=== PATIENT | female | born 1940 | race Two or more races ===

== ENCOUNTER 2018-08-21 17:56 | Emergency (ER) | payer MEDICARE, MEDICAID ==
[~2018-08-21] VITALS: Ht 157.5 cm; Wt 81.6 kg
[2018-08-21] MEDS ORDERED: UNOBMED (18:06)
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
[2018-08-21] MEDS ORDERED: Morphine Sulfate 2mg/ml Inj(IV/IM USE ONLY) IVP ONE ×3 (18:15→23:00)
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
--- NOTE | 2018-08-21 18:30 | NUR ---
ED Nurse Note: pt has dialysis AV shunt on right forearm and old AV shunt on left forearm.
--- NOTE | 2018-08-21 18:33 | NUR ---
ED Nurse Note: blood specimens sent down to the lab. All meds given.
--- NOTE | 2018-08-21 18:39 | NUR ---
ED Nurse Note: pt went down for CT and Xray via gurney. No s/s of distress.
[2018-08-21 19:05] LABS: BASOPHILS % (AUTO) 1.4 % (0.0-2.0); HEMATOCRIT 38.1 % (37.0-47.0); HEMOGLOBIN 12.4 G/DL (12.0-16.0); LYMPHOCYTES % (AUTO) 32.2 % (20.0-45.0); MEAN CORPUSCULAR VOLUME 102 FL (80-99); MONOCYTES % (AUTO) 5.2 % (1.0-10.0); NEUTROPHILS % (AUTO) 61.2 % (45.0-75.0); PLATELET COUNT 178 K/UL (150-450); RED BLOOD COUNT 3.73 M/UL (4.20-5.40); RED CELL DISTRIBUTION WIDTH 11.9 % (11.6-14.8); WHITE BLOOD COUNT 5.1 K/UL (4.8-10.8)
[2018-08-21 19:10] LABS: INR 0.9 (0.9-1.1)
--- NOTE | 2018-08-21 19:14 | NUR ---
ED Nurse Note: PT IS BACK FROM CT. PT REMAINS STABLE
[2018-08-21 19:17] LABS: ANION GAP 11 mmol/L (5-15); BLOOD UREA NITROGEN 24 mg/dL (7-18); CALCIUM 9.4 MG/DL (8.5-10.1); CARBON DIOXIDE 31 MMOL/L (21-32); CHLORIDE 98 MMOL/L (98-107); CREATININE 2.2 MG/DL (0.55-1.30); POTASSIUM 3.9 MMOL/L (3.5-5.1); SODIUM 140 MMOL/L (136-145)
[2018-08-21 19:19] LABS: ALANINE AMINOTRANSFERASE 15 U/L (12-78); ALBUMIN 3.7 G/DL (3.4-5.0); ALBUMIN/GLOBULIN RATIO 0.7 (1.0-2.7); ALKALINE PHOSPHATASE 187 U/L (46-116); ASPARTATE AMINO TRANSFERASE 24 U/L (15-37); BILIRUBIN,TOTAL 0.4 MG/DL (0.2-1.0)
--- NOTE | 2018-08-21 19:23 | NUR ---
HAND-OFF: Report given to REGIS [place]. Pt remains stable
--- NOTE | 2018-08-21 19:30 | NUR ---
HAND-OFF: Report given to REGIS [place].
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
[2018-08-21 20:11] VITALS: BP 156/69
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
--- NOTE | 2018-08-21 20:30 | NUR ---
ED Nurse Note: ERMD and beach lifeguard at bedside applying splint.
[2018-08-21 22:40] VITALS: BP 156/69
--- NOTE | 2018-08-21 22:57 | NUR ---
ED Nurse Note: Patient cleared for transport to [facility]. report given to [facility] by charge nurse Ilda. transport received report from patient chart. patient in stable condition upon departure. Patient rendered pain medication prior to transport per patient request and ERMD order. Patient departed with all belongings.
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
== END 2018-08-21 23:01 | disposition short-term general hospital (02) ==
LOC: EDBD 17:56 → EMR 18:30
DX: S72.492A Other fracture of lower end of left femur, initial encounter for closed fracture (principal); M97.12XA Periprosthetic fracture around internal prosthetic left knee joint, initial encounter; V48.1XXA Car passenger injured in noncollision transport accident in nontraffic accident, initial encounter; Y92.411 Interstate highway as the place of occurrence of the external cause; E87.5 Hyperkalemia; N28.89 Other specified disorders of kidney and ureter; I10 Essential (primary) hypertension; E11.9 Type 2 diabetes mellitus without complications; R07.9 Chest pain, unspecified; Z99.2 Dependence on renal dialysis; Z89.511 Acquired absence of right leg below knee
CPT/HCPCS: 29505; 36415; 71250; 73552; 73560; 73590; 74176; 80053; 84484; 85025; 85610; 85730; 93005; 96374; 96375; 96376; 99285; J2270; J2405